=== PATIENT | male | born 1995 | race Caucasian/White ===

== ENCOUNTER 2020-09-02 21:18 | Emergency (ER) | payer OTHER ==
[~2020-09-02 21:18] MED LIST: BACTRIM DS TAB1 EACH PO; ZOFRAN ODT 4 MG4 MG SL
== END 2020-09-02 22:36 | disposition home or self-care (01) ==
LOC: ER1 21:18
DX: S01.81XA Laceration without foreign body of other part of head, initial encounter (principal); Z23 Encounter for immunization; W01.10XA Fall on same level from slipping, tripping and stumbling with subsequent striking against unspecified object, initial encounter; Y93.89 Activity, other specified; Y92.098 Other place in other non-institutional residence as the place of occurrence of the external cause
CPT/HCPCS: 12013; 90471; 90715; 99282